=== PATIENT | female | born 1980 | race Hispanic/Latino ===

== ENCOUNTER 2022-05-02 19:03 | Emergency (ER) | payer BC ==
[~2022-05-02] VITALS: Ht 149.9 cm; Wt 52.2 kg
[2022-05-02] MEDS ORDERED: IBUPROFEN 600 MG TAB PO STA (19:49)
[2022-05-02] MEDS ORDERED: ONDANSETRON ODT4 MG PO (20:05)
[2022-05-02] MEDS ORDERED: IBUPROFEN600 MG PO (20:05)
[2022-05-02] MEDS ORDERED: METRONIDAZOLE500 MG PO (20:05)
[2022-05-02] MEDS ORDERED: CEPHALEXIN500 MG PO (20:05)
[2022-05-02] MEDS ORDERED: CEFTRIAXONE 1 GM VIAL ONE (20:11)
[2022-05-02] MEDS ORDERED: IBUPROFEN 600 MG TAB ONE (20:11)
== END 2022-05-02 20:50 | disposition home or self-care (01) ==
LOC: FSED 19:07
DX: R50.9 Fever, unspecified (principal); N12 Tubulo-interstitial nephritis, not specified as acute or chronic; R10.30 Lower abdominal pain, unspecified
CPT/HCPCS: 81003; 99283; J0696